=== PATIENT | male | born 1955 | race American Indian/Alaskan Native ===

== ENCOUNTER 2018-11-08 09:33 | Emergency (ER) | payer OTHER ==
--- NOTE | 2018-11-08 10:09 | Emergency Department Report ---
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 Patient presented to the ER complaining of old wound on the right foot, to the dorsum side has been going on for 5 month. Patient stated that [facility], had an x-ray which was negative for his foot. From every now and then he will have some pain in that area. Patient denied any recent injury or trauma. He denies any fever, nausea or vomiting. Patient smell of alcohol and admitted that he's been using alcohol every day but he is not ready for alcohol detoxification. His significant other is with the patient at this moment and she stated that he normally the problem and he will take Carafate but not today. Patient is alert oriented in no acute distress does not look toxic. MD Complaint: extremity pain - Related Data Previous Rx's Medication Instructions Recorded Last Taken Type Pantoprazole [Protonix] 40 mg PO QDAY #60 tablet 01/03/16 Unknown Rx Allergies Allergy/AdvReac Type Severity Reaction Status Date / Time Penicillins Allergy Swelling Verified 01/03/16 13:59 ED Review of Systems ROS: Stated complaint: FELL OUT/LFT SIDE/FOOT PAIN Other details as noted in HPI Comment: All other systems reviewed and negative Constitutional: denies: chills, fever Cardiovascular: denies: chest pain Endocrine: denies: excessive sweating Gastrointestinal: denies: abdominal pain Genitourinary: denies: urgency Musculoskeletal: denies: back pain Neurological: denies: headache, weakness, numbness, paresthesias, confusion ED Past Medical Hx - Past Medical History Previous Medical History?: Yes Additional medical history: Elevated liver enzymes - Surgical History Past Surgical History?: Yes Additional Surgical History: RIGHT FOREARM - Social History Smoking Status: Current Every Day Smoker Substance Use Type: Alcohol - Medications Home Medications: Home Medications Medication Instructions Recorded Confirmed Last Taken Type Pantoprazole [Protonix] 40 mg PO QDAY #60 tablet 01/03/16 Unknown Rx ED Physical Exam - General Limitations: No Limitations General appearance: alert, in no apparent distress - Head Head exam: Present: atraumatic, normocephalic, normal inspection - Eye Eye exam: Present: normal appearance - ENT ENT exam: Present: normal exam, normal orophraynx, mucous membranes moist - Neck Neck exam: Present: normal inspection - Respiratory Respiratory exam: Present: normal lung sounds bilaterally - Cardiovascular Cardiovascular Exam: Present: regular rate, normal rhythm, normal heart sounds - Extremities Exam Extremities exam: Present: full ROM, normal capillary refill, other (right foot with an old, healed wound on the dorsum with no greenish discharge, redness or erythema.). Absent: pedal edema, calf tenderness - Back Exam Back exam: Present: normal inspection, full ROM - Neurological Exam Neurological exam: Present: alert, oriented X3, CN II-XII intact - Psychiatric Psychiatric exam: Absent: depressed, agitated, anxious, manic, homicidal ideation, suicidal ideation - Skin Skin exam: Present: warm, intact, normal color ED Course Vital Signs 11/08/18 09:41 Temperature 98.4 F Pulse Rate 73 Respiratory 16 Rate Blood Pressure 126/41 O2 Sat by Pulse 96 Oximetry Critical care attestation.: If time is entered above; I have spent that time in minutes in the direct care of this critically ill patient, excluding procedure time. ED Disposition Clinical Impression: Foot pain, right Disposition: DC-01 TO HOME OR SELFCARE Is pt being admited?: No Condition: Stable Instructions: Normal Exam (ED) Referrals: PRIMARY CARE, [Primary Care Provider] - 3-5 Days
== END 2018-11-08 10:23 | disposition home or self-care (01) ==
LOC: ED 09:33
CPT/HCPCS: 99282

== ENCOUNTER 2020-06-29 14:17 | Emergency (ER) | payer OTHER | END 2020-06-29 14:20 | disposition left against medical advice (07) | LOC: ED 14:17 | DX: F10.10 Alcohol abuse, uncomplicated (principal); Z53.21 Procedure and treatment not carried out due to patient leaving prior to being seen by health care provider ==